=== PATIENT | female | born 1985 | race Caucasian/White ===

== ENCOUNTER 2017-05-10 23:19 | Emergency (ER) | payer MEDICAID ==
[2014-12-12 22:27] VITALS: BMI 37.2
[~2017-05-10 23:19] MED LIST: ATIVAN0.5 MG PO; CYCLOBENZAPRINE10 MG PO; ESGIC TABLET1 TAB PO; FOLIC ACID1 MG PO; HUMIRA20 MG/0.4 SQ; KEPPRA250 MG PO; LAMICTAL100 MG PO; LAMICTAL200 MG PO; NORCO 10/325 TA1 TA1 PO; PERCOCET 5-3251 TAB PO; PHENERGAN25 M1 PO; PROTONIX40 MG PO; TOPAMAX100 MG PO; TREXALL15 MG PO; VALIUM10 MG PO; VOLTAREN75 MG PO
[2017-05-10 23:49] LABS: HEMATOCRIT 37.1 % (36.0-48.0); HEMOGLOBIN 11.8 g/dL (12-16); LYMPHOCYTES 32.3 % (15-50); MCH 26.9 pg (26.0-34.0); MCHC 31.8 g/dL (31.0-37.0); MCV 84.7 fL (80.0-100.0); MEAN PLATELET VOLUME 9.1 fL (7.4-10.4); NEUTROPHILS 63.1 % (40-80); PLATELET COUNT 279 10x3/uL (130-400); RBC 4.38 10x6/uL (4.00-5.40); RDW 15.1 % (11.5-14.5)
[2017-05-11 00:02] LABS: ALKALINE PHOSPHATASE 124 U/L (46-116); ALT (SGPT) 29 U/L (10-68); BILIRUBIN - TOTAL 0.28 mg/dL (0.2-1.3); CALC OSMOLALITY 278 mosm/kg (275-300); CALCIUM 8.7 mg/dL (8.5-10.1); CARBON DIOXIDE 26.5 mmol/L (21.0-32.0); CHLORIDE - SERUM 105 mmol/L (98-107); CREATININE - SERUM 0.8 mg/dL (0.6-1.3); GLUCOSE 111 mg/dL (74-106); POTASSIUM - SERUM 3.4 mmol/L (3.5-5.1); PROTEIN - SERUM 6.9 g/dL (6.4-8.2); SODIUM 140 mmol/L (136-145); UREA NITROGEN 9 mg/dL (7-18); eGFR NON AFRICAN AMERICAN 88 mL/min (90-120)
== END 2017-05-11 01:45 | disposition home or self-care (01) ==
LOC: D.ER 23:19
PROVIDERS: Emergency Medicine
DX: T50.905A Adverse effect of unspecified drugs, medicaments and biological substances, initial encounter (principal); Y92.029 Unspecified place in mobile home as the place of occurrence of the external cause; E87.6 Hypokalemia; M32.9 Systemic lupus erythematosus, unspecified; G40.909 Epilepsy, unspecified, not intractable, without status epilepticus

== ENCOUNTER 2019-08-21 12:23 | Emergency (ER) | payer MEDICAID ==
[~2019-08-21] VITALS: Ht 167.6 cm; Wt 113.6 kg
[2019-08-21 12:38] VITALS: Ht 167.6 cm; Wt 113.6 kg
[2019-08-21] MEDS ORDERED: MUCINEX DM ER1 EAC1 PO (14:48)
[2019-08-21] MEDS ORDERED: VIBRAMYCIN 100100 MG PO (14:48)
[2019-08-21 15:43] VITALS: BP 100/62
== END 2019-08-21 15:43 | disposition home or self-care (01) ==
LOC: D.ER 12:23
DX: J06.9 Acute upper respiratory infection, unspecified (principal); J40 Bronchitis, not specified as acute or chronic; Z72.0 Tobacco use